=== PATIENT | female | born 1955 | race Caucasian/White ===

== ENCOUNTER 2017-01-13 13:13 | Emergency (ER) | payer BC ==
--- NOTE | 2017-01-13 14:50 | UC ---
Bite Injury/Animal HPI - HPI Summary HPI Summary: 61 YEAR OLD FEMALE PRESENTS WITH COMPLAINS OF TICK BITE ON LEFT LEG. - History of Current Complaint Stated Complaint: TICK Time Seen by Provider: 01/13/17 14:50 Hx Obtained From: Patient Severity Currently: Moderate Severity Initially: Moderate - Allergies/Home Medications Allergies/Adverse Reactions: Allergies Allergy/AdvReac Type Severity Reaction Status Date / Time No Known Allergies Allergy Verified 01/13/17 14:55 Home Medications: Home Medications Clobetasol 0.05% OINT* 1 applic TOPICAL BID 01/13/17 [History Confirmed 01/13/17 ] Conjugated Estrogens VAG CM* [Premarin VAG CREAM*] 1 applic VAGINAL DAILY [History Confirmed 01/13/17] PMH/Surg Hx/FS Hx/Imm Hx Previously Healthy: Yes - Surgical History Surgical History: None - Social History Alcohol Use: Weekly Alcohol Amount: 1 "a couple times a week" Substance Use Type: None Review of Systems Constitutional: Negative Skin: Rash, Other - TICK BITE Eyes: Negative ENT: Negative Respiratory: Negative Cardiovascular: Negative Gastrointestinal: Negative Genitourinary: Negative Motor: Negative Neurovascular: Negative Musculoskeletal: Negative Neurological: Negative Psychological: Negative All Other Systems Reviewed And Are Negative: Yes Physical Exam Triage Information Reviewed: Yes Vital Signs Reviewed: Yes Eye Exam: Normal ENT Exam: Normal Dental Exam: Normal Neck exam: Normal Neck: Positive: 1 Respiratory Exam: Normal Cardiovascular Exam: Normal Abdominal Exam: Normal Musculoskeletal Exam: Normal Neurological Exam: Normal Psychological Exam: Normal Skin: Positive: Other - TICK BITE LEFT LEG Bite Injury Course/Dx - Differential Dx/Diagnosis Provider Diagnoses: TICK BITE LEFT LEG Discharge - Discharge Plan Condition: Stable Disposition: HOME Patient Education Materials: Lyme Disease (ED), Tick Bite (ED) Referrals: Nina Fitch MD [Primary Care Provider] -
[2017-01-13 14:55] VITALS: BP 124/82
[2017-01-13] MEDS: DOXYcycline CAP(*) 100 MG PO ONE (15:08)
[2017-01-13 18:46] LABS: Hematocrit 39 % (35-47); Mean Corpuscular HGB Conc 34 g/dl (31-36); Mean Corpuscular Hemoglobin 29 pg (27-31); Mean Corpuscular Volume 88 fL (80-97); Mean Platelet Volume 9 um3 (7.4-10.4); Red Blood Count 4.42 10^6/ul (4.0-5.4); Red Cell Distribution Width 13 % (10.5-15); White Blood Count 9.4 10^3/ul (3.5-10.8)
[2017-01-13 18:49] LABS: Albumin 4.3 g/dL (3.2-5.2); BUN/Creatinine Ratio 22.1 (8-20); Calcium 9.4 mg/dL (8.6-10.3); EGFR African American 97.4 (>60); EGFR Non-African American 75.7 (>60); Globulin 2.3 g/dL (2-4); Potassium 4.7 mmol/L (3.5-5.0); Total Bilirubin 0.3 mg/dL (0.2-1.0); Total Protein 6.6 g/dL (6.4-8.9)
== END 2017-01-13 15:09 | disposition home or self-care (01) ==
LOC: UCCORT 13:13
DX: S80.862A Insect bite (nonvenomous), left lower leg, initial encounter (principal); W57.XXXA Bitten or stung by nonvenomous insect and other nonvenomous arthropods, initial encounter; Y93.9 Activity, unspecified; Y92.9 Unspecified place or not applicable
CPT/HCPCS: 36415; 80053; 85025; 86618; 99212; A9270-GY; G0463

== ENCOUNTER 2017-05-15 12:18 | Emergency (ER) | payer BC ==
[2017-05-15 15:51] VITALS: BP 144/84
--- NOTE | 2017-05-15 16:38 | ED ---
Respiratory - HPI Summary HPI Summary: 62 yr old female with fever, chills, fatigue, cough, nasal congestion. Onset was 5-6 days ago. Had a temp of 100.6 last evening. 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 She has no other complaints. - History of Current Complaint Chief Complaint: UCGeneralIllness Stated Complaint: FLU SYMPTOMS Time Seen by Provider: 05/15/17 15:47 Pain Intensity: 0 - Allergy/Home Medications Allergies/Adverse Reactions: Allergies Allergy/AdvReac Type Severity Reaction Status Date / Time No Known Allergies Allergy Verified 05/15/17 15:51 PMH/Surg Hx/FS Hx/Imm Hx Infectious Disease History: No Infectious Disease History: Denies: Traveled Outside the [place] in Last 30 Days - Family History Known Family History: Positive: None - Social History Occupation: Employed Full-time Lives: With Family Alcohol Use: Rare Alcohol Amount: 1 "a couple times a week" Substance Use Type: Reports: None Smoking Status (MU): Never Smoked Tobacco Review of Systems Positive: Nasal Discharge Positive: Cough All Other Systems Reviewed And Are Negative: Yes Physical Exam Triage Information Reviewed: Yes Vital Signs On Initial Exam: Initial Vitals Temp Pulse Resp BP Pulse Ox 99.1 F 88 14 144/84 97 05/15/17 15:47 05/15/17 15:47 05/15/17 15:47 05/15/17 15:47 05/15/17 15:47 Vital Signs Reviewed: Yes Appearance: Positive: Well-Appearing, No Pain Distress Skin: Positive: Warm, Skin Color Reflects Adequate Perfusion Head/Face: Positive: Normal Head/Face Inspection Eyes: Positive: EOMI ENT: Positive: Pharynx normal, Pharyngeal erythema Neck: Positive: Nontender Respiratory/Lung Sounds: Positive: Clear to Auscultation, Breath Sounds Present Cardiovascular: Positive: RRR Abdomen Description: Positive: Nontender Musculoskeletal: Positive: Strength/ROM Intact. Negative: Edema Left, Edema Right Neurological: Positive: Sensory/Motor Intact, Alert, Oriented to Person Place, Time, CN Intact II-III Psychiatric: Positive: Normal - [place] Coma Scale Best Eye Response: 4 - Spontaneous Best Motor Response: 6 - Obeys Commands Best Verbal Response: 5 - Oriented Coma Scale Total: 15 Diagnostics - Vital Signs Vital Signs Temp Pulse Resp BP Pulse Ox 05/15/17 15:47 99.1 F 88 14 144/84 97 - Laboratory Lab Statement: Any lab studies that have been ordered have been reviewed, and results considered in the medical decision making process. Disposition - Course Course Of Treatment: 62 yr old with fever, cough. positive for flu. DC home. No tamiflu as this has been going on for 5 to 6 days. Note for work given. - Diagnoses Provider Diagnoses: Influenza, Hypertension Discharge - Discharge Plan Condition: Good Disposition: HOME Patient Education Materials: Influenza (ED), Hypertension (ED) Forms: *Work Release Referrals: Nina Fitch MD [Primary Care Provider] - 2 Days
== END 2017-05-15 17:05 | disposition home or self-care (01) ==
LOC: UCCORT 12:18
DX: J11.1 Influenza due to unidentified influenza virus with other respiratory manifestations (principal); R09.81 Nasal congestion; R05 Cough; I10 Essential (primary) hypertension
CPT/HCPCS: 87502; 99212; G0463